=== PATIENT | male | born 1955 | race Two or more races ===

== ENCOUNTER 2017-09-07 06:47 | Emergency (ER) | payer OTHER, MEDICAID ==
[~2017-09-07] VITALS: Ht 172.7 cm; Wt 95.3 kg
[2017-09-07 07:14] VITALS: BP 183/100
[2017-09-07] MEDS ORDERED: NEOMYCIN-BACITRACIN-POLYM UNITDOSE PKG TOP OINT TOP ONE (07:45)
[2017-09-07] MEDS ORDERED: TETANUS-DIPTH-ACEL PERTUSSIS 0.5ML SYRG IM ONE (07:45)
[2017-09-07] MEDS ORDERED: cefTRIAXone SOD 1,000 MG VL ONE (07:46)
[2017-09-07] MEDS ORDERED: cefTRIAXone SOD 1,000 MG VL IM ONE (08:00)
== END 2017-09-07 08:04 | disposition home or self-care (01) ==
LOC: ER 06:47
DX: S41.132A Puncture wound without foreign body of left upper arm, initial encounter (principal); I10 Essential (primary) hypertension; F17.210 Nicotine dependence, cigarettes, uncomplicated; G89.29 Other chronic pain; M54.9 Dorsalgia, unspecified; Z88.8 Allergy status to other drugs, medicaments and biological substances; W54.0XXA Bitten by dog, initial encounter; Y93.89 Activity, other specified; Y99.8 Other external cause status; Y92.89 Other specified places as the place of occurrence of the external cause
CPT/HCPCS: 90471; 90715; 96372; 99284; J0696

== ENCOUNTER 2018-12-05 13:33 | Emergency (ER) | payer OTHER, MEDICAID ==
[~2018-12-05] VITALS: Ht 172.7 cm; Wt 86.2 kg
[2018-12-05] MEDS ORDERED: LIDOCAINE 2% (LOCAL ANESTH.) PF 5ml SDV ONE (14:08)
[2018-12-05 14:57] VITALS: BP 138/77
[2018-12-05] MEDS ORDERED: BACITRACIN TOP OINT 1 UD PKG TOP ONE (15:31)
[2018-12-05] MEDS ORDERED: LIDOCAINE 2%HCL (LOCAL ANESTH.) INJ 10ml MDV IJ ONE (15:45)
[2018-12-05] MEDS ORDERED: BACITRACIN-POLYMYXIN B TOPICAL OINT UD TOP ONE (15:45)
== END 2018-12-05 16:36 | disposition home or self-care (01) ==
LOC: ER 13:39
DX: S61.412A Laceration without foreign body of left hand, initial encounter (principal); M19.90 Unspecified osteoarthritis, unspecified site; E78.5 Hyperlipidemia, unspecified; I10 Essential (primary) hypertension; F17.210 Nicotine dependence, cigarettes, uncomplicated; W26.0XXA Contact with knife, initial encounter; Y93.89 Activity, other specified; Y99.8 Other external cause status; Y92.89 Other specified places as the place of occurrence of the external cause
CPT/HCPCS: 12002; 99283; J2001